=== PATIENT | male | born 1995 | race Caucasian/White ===

== ENCOUNTER 2020-06-09 16:04 | Emergency (ER) | payer BC, OTHER ==
[~2020-06-09] VITALS: Ht 182.9 cm; Wt 91.2 kg
[2020-06-09] MEDS ORDERED: MORPHINE SULFATE 4 MG/ML, 1ML ONE ×2 (16:30→19:24)
[2020-06-09] MEDS ORDERED: ONDANSETRON 2MG/ML, 2ML ONE (16:30)
[2020-06-09] MEDS ORDERED: SODIUM CHLORIDE 0.9% 1,000ML IVBOLUS ONE (16:30)
[2020-06-09] MEDS ORDERED: ONDANSETRON 2MG/ML, 2ML IVPush ONE (16:30)
[2020-06-09] MEDS ORDERED: SODIUM CHLORIDE FLUSH 10ML SYR IVF ONE (16:30)
[2020-06-09] MEDS: MORPHINE SULFATE 4 MG/ML, 1ML IVPush PRN ×2 (16:39→19:25)
--- NOTE | 2020-06-09 16:40 | NUR ---
PIV PLACED, LABS DRAWN. MEDS ADMIN PER APR. IVF RUNNING. PT CONNECTED TO MONITORING. CALL LIGHT IN REACH. SPOUSE AT BEDSIDE.
--- NOTE | 2020-06-09 17:13 | NUR ---
PT RESTING COMFORTABLY ON GURNEY. PT STATES PAIN IS BETTER, STOMACH STILL HURTS, BUT NOT MUCH. IVF RUNNING. PT CONTINUES WITH HR IN LOW 40s. ERPA AWARE.
[2020-06-09 17:15] LABS: BASOPHILS % (AUTO) 0 % (0-1); EOSINOPHILS % (AUTO) 0 % (1-7); LYMPHOCYTES % (AUTO) 13 % (22-44); MEAN CORPUSCULAR HEMOGLOBIN 29.9 pg (27.5-34.5); MEAN CORPUSCULAR HGB CONC 33.9 g/dL (33.2-36.2); MEAN PLATELET VOLUME 8.4 fL (7.4-10.4); MONOCYTES % (AUTO) 3 % (2-9); NEUTROPHILS % (AUTO) 84 % (42-75); PLATELET COUNT 319 x10^3/uL (130-400); RED BLOOD COUNT 5.21 x10^6/uL (4.38-5.82)
[2020-06-09 17:16] LABS: MD NO
[2020-06-09 17:26] LABS: ALANINE AMINOTRANSFERASE 27 U/L (12-78); ALBUMIN 4.6 g/dL (3.4-5.0); ANION GAP 9 mmol/L (5-15); CHLORIDE 109 mmol/L (98-107); CREATININE 1.12 mg/dL (0.7-1.3)
[2020-06-09 17:29] LABS: ALKALINE PHOSPHATASE 60 U/L (45-117); BILIRUBIN,TOTAL 0.5 mg/dL (0.2-1.0); TOTAL PROTEIN 7.8 g/dL (6.4-8.2)
--- NOTE | 2020-06-09 17:49 | NUR ---
TASK RN: PT RESTING WITH EYES CLOSED, NO DISTRESS, WHILE AWAITING RE-EVAL
--- NOTE | 2020-06-09 18:07 | NUR ---
ALL RESULTS ARE BACK AT THIS TIME. CHART UP FOR RECHECK.
[2020-06-09] MEDS ORDERED: MAALOX/HYOSCYAMINE/LIDOCAINE 45 ML BTL PO ONE (18:30)
[2020-06-09] MEDS ORDERED: FAMOTIDINE 20 MG/2 ML IVPush ONE (18:30)
[2020-06-09] MEDS ORDERED: MAALOX/HYOSCYAMINE/LIDOCAINE 45 ML BTL ONE (18:40)
[2020-06-09] MEDS ORDERED: FAMOTIDINE 20 MG/2 ML ONE (18:40)
--- NOTE | 2020-06-09 18:47 | NUR ---
MEDS ADMIN PER APR. PT RESTING ON KATE.
[2020-06-09] MEDS ORDERED: METOCLOPRAMIDE 5 MG/ML, 2ML ONE (19:08)
--- NOTE | 2020-06-09 19:27 | NUR ---
PT STATES HE THREW UP THE GI COCKTAIL AND STILL FEELING NAUSEATED. ERPA NOTIFIED. BLENDING PLANT OPERATOR PER APR. SECOND DOSE PAIN BLENDING PLANT OPERATOR. PT CONNECTED TO MONITORING. CALL LIGHT IN REACH.
[2020-06-09] MEDS ORDERED: METOCLOPRAMIDE 5 MG/ML, 2ML IVPush ONE (19:30)
--- NOTE | 2020-06-09 19:53 | NUR ---
PT STATES HE FEELS MUCH BETTER. PT READY TO GO HOME. CHART UP FOR RECHECK.
[2020-06-09 20:36] VITALS: BP 120/84
== END 2020-06-09 20:39 | disposition home or self-care (01) ==
LOC: ED 18:20
DX: R10.13 Epigastric pain (principal); R11.2 Nausea with vomiting, unspecified
CPT/HCPCS: 36415; 80053; 83690; 85025; 96361; 96374; 96375; 96376; 99285; J2270; J2405; J2765; J7030

== ENCOUNTER 2020-07-07 03:47 | Emergency (ER) | payer OTHER ==
[~2020-07-07] VITALS: Ht 182.9 cm; Wt 88.0 kg
--- NOTE | 2020-07-07 03:56 | NUR ---
eyal RN: unable to obtain temp in eyal d/t pt dry heaving.
[2020-07-07] MEDS ORDERED: ONDANSETRON 2MG/ML, 2ML ONE (04:14)
[2020-07-07] MEDS ORDERED: MORPHINE SULFATE 4 MG/ML, 1ML ONE (04:14)
[2020-07-07] MEDS ORDERED: PROMETHAZINE 25 MG/ML, 1ML ONE (04:14)
[2020-07-07] MEDS ORDERED: FAMOTIDINE 20 MG/2 ML ONE (04:15)
[2020-07-07] MEDS ORDERED: PROMETHAZINE 25 MG/ML, 1ML IM ONE (04:30)
[2020-07-07] MEDS ORDERED: FAMOTIDINE 20 MG/2 ML IVPush ONE (04:30)
[2020-07-07] MEDS ORDERED: SODIUM CHLORIDE FLUSH 10ML SYR IVF ONE (04:30)
[2020-07-07] MEDS ORDERED: SODIUM CHLORIDE 0.9% 1,000ML IVBOLUS ONE (04:30)
[2020-07-07] MEDS ORDERED: ONDANSETRON 2MG/ML, 2ML IVPush ONE (04:30)
[2020-07-07] MEDS ORDERED: MORPHINE SULFATE 4 MG/ML, 1ML IVPush PRN (04:30)
--- NOTE | 2020-07-07 04:39 | NUR ---
this RN entered room and pt was in severe pain, pt was dry heaving and vomiting, this RN started an IV, started fluids and adminsitered medications ordered by MD. Shortly after recieving all meds pt reported of a decrease in pain, vomitting subsided, at bedside, pt laying in bed at this moment, side rails up and call light in reach.
[2020-07-07 04:46] LABS: BASOPHILS % (AUTO) 0 % (0-1); EOSINOPHILS % (AUTO) 0 % (1-7); LYMPHOCYTES % (AUTO) 19 % (22-44); MD NO; MEAN CORPUSCULAR HEMOGLOBIN 29.8 pg (27.5-34.5); MEAN CORPUSCULAR HGB CONC 33.8 g/dL (33.2-36.2); MEAN PLATELET VOLUME 8.2 fL (7.4-10.4); MONOCYTES % (AUTO) 4 % (2-9); NEUTROPHILS % (AUTO) 76 % (42-75); PLATELET COUNT 319 x10^3/uL (130-400); RED CELL DISTRIBUTION WIDTH 13.2 % (9.4-14.8)
[2020-07-07 04:59] LABS: ALBUMIN 4.7 g/dL (3.4-5.0); ANION GAP 9 mmol/L (5-15); CALCIUM 10.4 mg/dL (8.5-10.1); CHLORIDE 108 mmol/L (98-107)
[2020-07-07 05:03] LABS: ALANINE AMINOTRANSFERASE 35 U/L (12-78); ALKALINE PHOSPHATASE 64 U/L (45-117); BILIRUBIN,TOTAL 0.6 mg/dL (0.2-1.0); CREATININE 1.08 mg/dL (0.7-1.3)
--- NOTE | 2020-07-07 05:07 | NUR ---
pt currently resting, reports of great relief in regards to pain and N/V, pts oxygen was dropping to high 80s so this RN put pt on 2LPM via nasal canula, pts heart rate was in the high 40s and was notified and this RN placed pt on a heart monitor, NAD a this moment, at bedside
[2020-07-07] MEDS ORDERED: OMNIPAQUE 350 MG/ML, 100ML BOTTLE ONE (05:29)
--- NOTE | 2020-07-07 05:36 | NUR ---
pt back from CT, pt states pain is much better than before, rates it now as a 5 out of 10, all needs in reach, pt hooked up to heart monitor and nasal canula running at 2LPM, pt resting with bed in low position and call light in reach. Pt did state that he was diagnosed with a heart murmur in highschool.
[2020-07-07 06:31] VITALS: BP 114/74
== END 2020-07-07 06:45 | disposition home or self-care (01) ==
LOC: ED 05:36
DX: R10.84 Generalized abdominal pain (principal); E86.0 Dehydration; R11.2 Nausea with vomiting, unspecified
CPT/HCPCS: 36415; 74177; 80053; 83690; 85025; 96361; 96372; 96374; 96375; 99285; J2270; J2405; J2550; J7030; Q9967

== ENCOUNTER 2020-10-02 08:01 | Emergency (ER) | payer OTHER ==
[~2020-10-02] VITALS: Ht 182.9 cm; Wt 83.0 kg
--- NOTE | 2020-10-02 08:48 | NUR ---
Pt's girlfriend at the bedside is the primary historian. Reports pt has followed up with GI and been to the ER multiple times starting "a couple months ago" for nausea that occurs without a pattern, most recently starting at 0300 this AM. Pt with vomit bag in hand with spit in it. Pt connected to BP and O2 monitors, laying in prone position as position of comfort.
--- NOTE | 2020-10-02 09:03 | NUR ---
Eloisa SURGICAL SUPPLY ASSISTANT at bedside for eval.
[2020-10-02] MEDS ORDERED: ONDANSETRON 2MG/ML, 2ML ONE (09:23)
[2020-10-02] MEDS ORDERED: HALOPERIDOL 5 MG/ML ONE (09:25)
[2020-10-02] MEDS ORDERED: SODIUM CHLORIDE 0.9% 1,000ML IVBOLUS ONE (09:30)
[2020-10-02] MEDS ORDERED: HALOPERIDOL 5 MG/ML IV ONE (09:30)
[2020-10-02] MEDS ORDERED: SODIUM CHLORIDE FLUSH 10ML SYR IVF ONE (09:30)
[2020-10-02] MEDS ORDERED: ONDANSETRON 2MG/ML, 2ML IVPush ONE (09:30)
[2020-10-02 09:32] LABS: BASOPHILS % (AUTO) 1 % (0-1); EOSINOPHILS % (AUTO) 0 % (1-7); LYMPHOCYTES % (AUTO) 7 % (22-44); MEAN CORPUSCULAR HEMOGLOBIN 30.3 pg (27.5-34.5); MEAN CORPUSCULAR HGB CONC 34.3 g/dL (33.2-36.2); MEAN PLATELET VOLUME 7.9 fL (7.4-10.4); MONOCYTES % (AUTO) 3 % (2-9); NEUTROPHILS % (AUTO) 89 % (42-75); PLATELET COUNT 347 x10^3/uL (130-400); RED BLOOD COUNT 5.28 x10^6/uL (4.38-5.82); RED CELL DISTRIBUTION WIDTH 13.2 % (9.4-14.8)
--- NOTE | 2020-10-02 09:36 | NUR ---
THIS FLOAT RN AT BEDSIDE TO INITIATE IV AND MEDICATE PT. PT MEDICATED ORDERED ON EMAR. CONTINUOUS CARDIAC MONITORING INITIATED PRIOR TO MEDICATION ADMINISTRATION. ED PAELMER, DECLINED EKG PRIOR TO CERAMIC PLATER. PT'S VSS. PT'S AT BEDSIDE. CALL LIGHT W/IN REACH. PT INSTRUCTED ON USE, VERBALIZED UNDERSTANDING. 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
[2020-10-02 09:42] LABS: ALBUMIN 4.4 g/dL (3.4-5.0); CHLORIDE 108 mmol/L (98-107)
[2020-10-02 09:48] LABS: ALANINE AMINOTRANSFERASE 26 U/L (12-78); ALKALINE PHOSPHATASE 62 U/L (45-117); ANION GAP 6 mmol/L (5-15); CALCIUM 9.8 mg/dL (8.5-10.1); CREATININE 1.14 mg/dL (0.7-1.3); TOTAL PROTEIN 7.8 g/dL (6.4-8.2)
--- NOTE | 2020-10-02 10:19 | NUR ---
Pt sleeping, "it feels much better."
--- NOTE | 2020-10-02 11:06 | NUR ---
THIS FLOAT RN AT BEDSIDE TO DC PT FOR PRIMARY RN, DILSHAD. PT VERBALIZED UNDERSTANDING TO DC INSTRUCTIONS. PT'S N/V REMAINS RESOLVED AT THIS TIME. DISCUSSED REFERRAL TO PT'S GI SPECIALIST. PT'S SPOUSE TO DRIVE PT HOME. VSS. AMBULATORY TO CHECKOUT C STEADY GAIT.
[2020-10-02 11:07] VITALS: BP 105/69
== END 2020-10-02 11:09 | disposition home or self-care (01) ==
LOC: ED 08:59
DX: R11.2 Nausea with vomiting, unspecified (principal); R10.11 Right upper quadrant pain; R10.13 Epigastric pain
CPT/HCPCS: 36415; 80053; 83690; 85025; 96361; 96374; 96375; 99284; J1630; J2405; J7030